=== PATIENT | male | born 1980 | race Caucasian/White ===

== ENCOUNTER 2017-06-12 08:03 | Emergency (ER) | payer BC ==
--- NOTE | 2017-06-12 08:36 | UC ---
Throat Pain/Nasal Gamaliel HPI - HPI Summary HPI Summary: c/o of 5 days of pain on throat after he had an episode of cough. Yesterday he was eating mozarella sticks while driving and felt pain as he swallowed. He continues to feel pain whenever he coughs and smokes and he stopped smoking yesterday and applied the nicotine patch. Also states he would like to start on nicotine inhaler as the patch gave him allergies last summer. HE has history of HTN but has not taken medication for the past year. His girlfriend states he was on amlodipine and lisinopril in the past but gave him side effects - History of Current Complaint Chief Complaint: UCGI Stated Complaint: SORE THROAT Time Seen by Provider: 06/12/17 08:28 Hx Obtained From: Patient, Family/Hop Strainer Onset/Duration: Sudden Onset, Lasting Minutes, Still Present Severity: Moderate Pain Intensity: 2 Cough: Nonproductive Associated Signs & Symptoms: Positive: Dysphagia Related History: Seasonal Allergies - Epiglottits Risk Factors Epiglottis Risk Factors: Negative - Allergies/Home Medications Allergies/Adverse Reactions: Allergies Allergy/AdvReac Type Severity Reaction Status Date / Time No Known Allergies Allergy Verified 06/12/17 08:23 PMH/Surg Hx/FS Hx/Imm Hx Previously Healthy: Yes Cardiovascular History: Hypertension - Surgical History Surgical History: Yes Surgery Procedure, Year, and Place: appendectomy - Social History Alcohol Use: Daily Alcohol Amount: 8-10 beers/day Substance Use Type: Marijuana Substance Use Comment - Amount & Last Used: rarely Smoking Status (MU): Heavy Every Day Tobacco Smoker Type: Cigarettes Amount Used/How Often: 1 1/2 ppd Review of Systems ENT: Sore Throat Respiratory: Cough All Other Systems Reviewed And Are Negative: Yes Physical Exam Triage Information Reviewed: Yes Appearance: Well-Appearing, No Pain Distress, Well-Nourished Vital Signs: Initial Vital Signs Temp 99.0 F 06/12/17 08:16 Pulse 89 06/12/17 08:16 Resp 16 06/12/17 08:16 BP 153/120 06/12/17 08:16 Pulse Ox 99 06/12/17 08:16 Vital Signs Reviewed: Yes Eyes: Positive: Conjunctiva Clear ENT: Positive: Pharynx normal, TMs normal, Uvula midline Neck: Positive: Supple, No Lymphadenopathy, Tenderness @ - hyoid prominence, no goiter, no LNE Respiratory: Positive: Chest non-tender, Lungs clear, Normal breath sounds, No respiratory distress, No accessory muscle use Cardiovascular: Positive: RRR, No Murmur, Pulses Normal, Brisk Capillary Refill Musculoskeletal: Positive: No Edema Throat Pain/Nasal Course/Dx - Course Course Of Treatment: dysphagia, f/u with ENT for endoscopy, f/u PCP for HTN and smoking cessation. Started patient on verapamil and nicotine inhaler - Differential Dx/Diagnosis Provider Diagnoses: HTN. Tobacco use. Dysphagia Discharge - Sign-Out/Discharge Documenting (check all that apply): Discharge/Admit/Transfer - Discharge Plan Condition: Stable Disposition: HOME Prescriptions: Magic Mouth Was-PINKY/MAAL/LIDO* 5 ml SWISH SWAL QID #50 ml Nicotine Inhaler* 10 mg INH Q2H 30 Days #168 amp Verapamil SR CAP* [Calan Sr CAP*] 180 mg PO DAILY #30 cap.sr Patient Education Materials: How to Stop Smoking (ED), Chronic Hypertension (ED ), Dysphagia (ED) Referrals: [facility] [place]] Carrie Sultana [Medical Doctor] - No Primary Care Phys,NOPCP [Primary Care Provider] - - Billing Disposition and Condition Condition: STABLE Disposition: HOME
== END 2017-06-12 09:30 | disposition home or self-care (01) ==
LOC: UCEAST 08:03
DX: I10 Essential (primary) hypertension (principal); R13.10 Dysphagia, unspecified; J02.9 Acute pharyngitis, unspecified; R05 Cough; F17.210 Nicotine dependence, cigarettes, uncomplicated
CPT/HCPCS: 87651; 99202; G0463

== ENCOUNTER 2018-08-07 07:59 | Emergency (ER) | payer BC ==
--- NOTE | 2018-08-07 08:19 | UC ---
Lower Extremity/Ankle HPI - HPI Summary HPI Summary: 38-year-old male presents with complaints of left ankle pain. States 5 days ago he slipped and fell at home twisting his left ankle. He was able to wear weight immediately after the injury. States he has been resting and icing the ankle with some improvement. Presents today with concerns of continued pain to the left lateral ankle. Denies erythema, bruising, swelling, numbness, or tingling. - History of Current Complaint Chief Complaint: UCLowerExtremity Stated Complaint: ANKLE INJURY Time Seen by Provider: 08/07/18 08:10 Hx Obtained From: Patient Pain Intensity: 2 - Allergies/Home Medications Allergies/Adverse Reactions: Allergies Allergy/AdvReac Type Severity Reaction Status Date / Time No Known Allergies Allergy Verified 08/07/18 08:13 Home Medications: Home Medications Famotidine [Acid Controller] 10 mg PO DAILY PRN 08/07/18 [History Confirmed ] PMH/Surg Hx/FS Hx/Imm Hx Cardiovascular History: Hypertension - Surgical History Surgical History: Yes Surgery Procedure, Year, and Place: appendectomy - Family History Known Family History: Positive: Hypertension - Social History Occupation: Employed Full-time Lives: With Family Alcohol Use: Daily Alcohol Amount: 8-10 beers/day Substance Use Type: Marijuana Substance Use Comment - Amount & Last Used: rarely Smoking Status (MU): Former Smoker Type: Cigarettes Amount Used/How Often: 1 1/2 ppd Length of Time of Smoking/Using Tobacco: age 18 - 38 Have You Smoked in the Last Year: Yes When Did the Patient Quit Smoking/Using Tobacco: mid june 2018 - just quit Review of Systems All Other Systems Reviewed And Are Negative: Yes Constitutional: Negative: Fever, Chills Skin: Negative: Rash, Bruising Respiratory: Positive: Negative Cardiovascular: Positive: Negative Gastrointestinal: Positive: Negative Genitourinary: Positive: Negative Motor: Negative: Weakness Neurovascular: Negative: Decreased Sensation Musculoskeletal: Positive: Arthralgia. Negative: Decreased ROM Neurological: Positive: Negative Is Patient Immunocompromised?: No Physical Exam - Summary Physical Exam Summary: GENERAL APPEARANCE: Well developed, well nourished, alert and cooperative, and appears to be in no acute distress. CARDIAC: Normal S1 and S2. No S3, S4 or murmurs. Rhythm is regular. There is no peripheral edema, cyanosis or pallor. Extremities are warm and well perfused. Capillary refill is less than 2 seconds. Peripheral pulses intact. LUNGS: Clear to auscultation without rales, rhonchi, wheezing or diminished breath sounds. ABDOMEN: Positive bowel sounds. Soft, nondistended, nontender. No guarding or rebound. No masses or hepatosplenomegally. MUSKULOSKELETAL: Mild tenderness over the left lateral malleolus. ROM intact. No joint erythema, ecchymosis, or edema. Normal muscular development. Normal gait. Circulation and sensation intact. SKIN: Skin normal color, texture and turgor with no lesions or eruptions. Triage Information Reviewed: Yes Vital Signs: Initial Vital Signs Temp 98.3 F 08/07/18 08:03 Pulse 78 08/07/18 08:03 Resp 14 08/07/18 08:03 BP 175/110 08/07/18 08:03 Pulse Ox 98 08/07/18 08:03 Vital Signs Reviewed: Yes Diagnostics - Radiology No standard instances Radiology Interpretation Completed By: Radiologist Summary of Radiographic Findings: Order Information: ANKLE LEFT 3+VWS. Accession Number: [id number]. CPT: 27401. Indication: Left ankle pain. 3 views of left ankle demonstrates ankle mortise to be intact. No fracture is noted. No evidence of soft tissue swelling is noted. IMPRESSION: No fracture of the left ankle is noted. Lower Extremity Course/Dx - Course Course Of Treatment: 38-year-old male presents with complaints of left ankle pain. States 5 days ago he slipped and fell at home twisting his left ankle. He was able to wear weight immediately after the injury. States he has been resting and icing the ankle with some improvement. Presents today with concerns of continued pain to the left lateral ankle. Denies erythema, bruising, swelling, numbness, or tingling. Afebrile. Hypertensive otherwise vital signs stable. Exam revealed mild tenderness over the left lateral malleolus without erythema, ecchymosis, or edema. Patient had full range of motion and normal gait. Circulation and sensation were intact. X-ray showed no acute fracture. Will treat conservatively for a left ankle sprain. Patient was provided a stirrup splint. He is to follow-up with orthopedic surgery in 5-7 days if symptoms are not improving. Anticipatory guidance and warning symptoms were reviewed with the patient. Verbalized understanding and agrees plan of care. - Differential Dx/Diagnosis Differential Diagnosis/HQI/PQRI: Contusion, Dislocation, Fracture (Closed), Sprain, Tendonitis Provider Diagnosis: Left ankle sprain Discharge - Sign-Out/Discharge Documenting (check all that apply): Patient Departure All imaging exams completed and their final reports reviewed: Yes - Discharge Plan Condition: Stable Disposition: HOME Patient Education Materials: Ankle Sprain (ED), Ankle Stirrup Splint (ED) Referrals: No Primary Care Phys,NOPCP [Primary Care Provider] - Additional Instructions: The x-ray performed in the clinic today showed no evidence of a fracture. I suspect that you have a sprain of the left ankle. Rest the ankle as much as possible. Use the ankle brace that was applied in the clinic today until you are pain free. Apply ice to the affected area for 15-20 minutes at least 4 times a day to help with the pain and swelling. Elevate the leg to help reduce swelling. Take acetaminophen (Tylenol) or ibuprofen (Advil, Motrin) according to directions as needed for pain. Follow up with orthopedic surgery in 5-7 days days if symptoms do not improve. Seek immediate medical attention if you have severe pain not managed with pain medication, you are unable to walk or bear any weight, develop numbness or tingling in the foot or toes, or have any worsening of symptoms. - Billing Disposition and Condition Condition: STABLE Disposition: Home
[2018-08-07 08:20] VITALS: BP 160/108
== END 2018-08-07 09:15 | disposition home or self-care (01) ==
LOC: UCEAST 07:59
DX: S93.402A Sprain of unspecified ligament of left ankle, initial encounter (principal); W01.0XXA Fall on same level from slipping, tripping and stumbling without subsequent striking against object, initial encounter; Y92.009 Unspecified place in unspecified non-institutional (private) residence as the place of occurrence of the external cause; I10 Essential (primary) hypertension; Z87.891 Personal history of nicotine dependence
CPT/HCPCS: 99212; G0463